=== PATIENT | female | born 1990 | race African-American/Black ===

== ENCOUNTER 2016-09-08 08:19 | Emergency (ER) | payer MEDICAID, OTHER ==
[~2016-09-08] VITALS: Ht 162.6 cm; Wt 69.6 kg
[~2016-09-08 08:19] MED LIST: IRON18TA2 PO; NAPR500T PO
[2016-09-08 08:22] VITALS: BP 108/67; PULSE 75; RESP 16; TEMP 98.4; O2SAT 100
--- NOTE | 2016-09-08 08:46 | PD ---
HPI . Vaginal discharge Chief Complaint: Hospital Coder Problem/Complaint Time Seen by Provider: 08:25 Travel History International Travel<30 days: No Contact w/Intl Traveler<30days: No Traveled to known affect area: No History of Present Illness HPI Patient presents with a 3 day history of vaginal discharge. She denies any urinary tract symptoms such as dysuria, frequency or urgency. She denies any abnormal vaginal bleeding or dyspareunia. She denies any fever. PFSH Past Medical History Diminished Hearing: No ?: Not LMP: 08/30/16 : 2 Para: 1 Miscarriage: 1 : 0 Past Surgical History Section: Yes Social History Alcohol Use: No Tobacco Use: No Substance Use: No Allergies-Medications (Allergen,Severity, Reaction): Coded Allergies: Penicillin (Verified Allergy, Severe, Itching, 09/08/16) Reported Meds & Prescriptions Reported Meds & Active Scripts Active No Active Prescriptions or Reported Medications Review of Systems Except as stated in HPI: all other systems reviewed are Neg General / Constitutional: No: Fever, Chills Gastrointestinal: No: Nausea, Vomiting, Diarrhea Genitourinary: Positive: Discharge, No: Urgency, Frequency, Dysuria, Dyspareunia, Dysmenorrhea, Metorrhagia, Vaginal Bleeding Musculoskeletal: Positive: Pain (chronic right low back pain) Physical Exam Narrative GENERAL: Healthy-appearing young woman who is in no distress. SKIN: Warm and dry. HEAD: Atraumatic. Normocephalic. EYES: Pupils equal and round. ENT: No nasal bleeding or discharge. Mucous membranes pink and moist. NECK: Trachea midline. CARDIOVASCULAR: Regular rate and rhythm. RESPIRATORY: No accessory muscle use. GASTROINTESTINAL: Abdomen soft, non-tender, nondistended. : Normal female external genitalia. White discharge in the vaginal vault. Os is closed. There is no cervical motion tenderness. There is no adnexal tenderness or mass. MUSCULOSKELETAL: No obvious deformities. No edema. NEUROLOGICAL: Awake and alert. No obvious cranial nerve deficits. Motor grossly within normal limits. Normal speech. PSYCHIATRIC: Appropriate mood and affect; insight and judgment normal. Data Data Last Documented VS Vital Signs Date Time Temp Pulse Resp B/P Pulse Ox O2 Delivery O2 Flow Rate FiO2 09/08/16 08:22 98.4 75 16 108/67 100 Orders Gc And Chlamydia Pcr (09/08/16 08:25) Wet Prep Profile (09/08/16 08:25) Urinalysis - C+S If Indicated (09/08/16 08:25) Ed Urine Pregnancytest Poc (09/08/16 08:25) Labs Laboratory Tests Test 09/08/16 08:50 Urine Collection Type CLEAN CATCH Urine Color YELLOW Urine Turbidity CLEAR Urine pH 6.5 Urine Specific [place] 1.025 Urine Protein NEG mg/dL Urine Glucose (UA) NEG mg/dL Urine Ketones NEG mg/dL Urine Occult Blood NEG Urine Nitrite NEG Urine Bilirubin NEG Urine Leukocyte Esterase SMALL Urine RBC 0-3 /hpf Urine WBC 3-5 /hpf Urine Squamous Epithelial 6-8 /hpf Cells Urine Amorphous Sediment FEW Microscopic Urinalysis Comment CULT NOT INDICATED Clue Cells (Wet Prep) PRESENT Vaginal Trichomonas (Wet Prep) NONE SEEN Vaginal Yeast (Wet Prep) NONE SEEN MDM Medical Decision Making Medical Screen Exam Complete: Yes Emergency Medical Condition: Yes Differential Diagnosis Differential diagnosis of vaginal discharge includes but is not limited to physiologic discharge, yeast infection, bacterial vaginosis, sexually transmitted disease. Narrative Course Patient presents for evaluation of vaginal discharge. She does not have any associated symptoms such as pelvic pain, dyspareunia, fever, urinary tract symptoms. Additionally, she is complaining with right low back pain. However, this is chronic. UA is negative. Wet prep is positive for clue cells. She will be treated for BV. Diagnosis Primary Impression: BV (bacterial vaginosis) Med/Other Pt SpecificInfo: Prescription(s) given Scripts Metronidazole Vaginal Gel (Metrogel Vaginal Gel)0.75 % Gel1 Appl VAGINAL HS 7 Days Ref 0 Prov:Thelma Benson MD 09/08/16 Disposition: 01 DISCHARGE HOME Condition: Stable Thelma Benson MD Sep 08, 2016 08:46
[2016-09-08 08:59] LABS: BLOOD, URINE NEG (NEG); GLUCOSE,URINE NEG (NEG); KETONE, URINE NEG (NEG); NITRITE,URINE NEG (NEG); PH, URINE 6.5 (5.0-8.5)
[2016-09-08 09:02] LABS: METHOD OF COLLECTION CLEAN CATCH; URINE COLOR YELLOW (YELLW/STRAW)
[2016-09-08 09:03] LABS: RBC, URINE 0-3 /hpf (0-3)
[2016-09-08 09:04] LABS: COMMENT (UR) CULT NOT INDICATED; CULTURE IF INDICATED CULT NOT INDICATED
[2016-09-08] MEDS ORDERED: METR0.7528 VAGINAL (09:13)
[2016-09-08 09:24] VITALS: BP 110/65
[2016-09-08 14:35] LABS: CHLAMYDIA PCR NOT DETECTED (NOT DETECT); NEISSERIA PCR NOT DETECTED (NOT DETECT)
== END 2016-09-08 09:25 | disposition home or self-care (01) ==
LOC: PHED 08:19
DX: N76.0 Acute vaginitis (principal)
CPT/HCPCS: 81001; 84703; 87210; 87491; 87591; 99283

== ENCOUNTER 2017-04-20 02:13 | Emergency (ER) | payer MEDICAID ==
[~2017-04-20] VITALS: Ht 165.1 cm; Wt 70.9 kg
[~2017-04-20 02:13] MED LIST changes: -IRON18TA2 PO; +METR0.7528 VAGINAL; -NAPR500T PO
[2017-04-20 02:18] VITALS: BP 120/64; PULSE 86; RESP 18; TEMP 98.5; O2SAT 99
[2017-04-20] MEDS ORDERED: SODIUM CHLORIDE 0.9% FLUSH 10 ML FLUSH IVF PRN (02:30)
[2017-04-20 03:00] LABS: AUTOMATED NEUTROPHIL # 3.9 TH/MM3 (1.8-7.7); BASOPHIL # 0.1 TH/MM3 (0-0.2); BASOPHIL % 1.6 % (0.0-2.0); EOSINOPHIL # 0.1 TH/MM3 (0-0.4); EOSINOPHIL % 1.2 % (0.0-4.0); HEMATOCRIT 34.8 % (35.0-46.0); HEMO FLAGS DIFF FINAL; LYMPH % 38.4 % (9.0-44.0); LYMPHOCYTE # 2.8 TH/MM3 (1.0-4.8); MEAN CELL VOLUME 76.5 FL (80.0-100.0); MEAN CORPUSCULAR HEMOGLOBIN 25.3 PG (27.0-34.0); MONO % 6.8 % (0.0-8.0); PLATELET COUNT 222 TH/MM3 (150-450); RED BLOOD COUNT 4.55 MIL/MM3 (4.00-5.30); RED CELL DISTRIBUTION WIDTH 12.2 % (11.6-17.2); WHITE BLOOD COUNT 7.4 TH/MM3 (4.0-11.0)
[2017-04-20 03:06] LABS: POTASSIUM 3.7 MEQ/L (3.5-5.1)
[2017-04-20 03:09] LABS: BICARBONATE 26.1 MEQ/L (21.0-32.0)
--- NOTE | 2017-04-20 03:42 | PD ---
HPI Chief Complaint: Related Problem Time Seen by Provider: 02:23 Travel History International Travel<30 days: No Contact w/Intl Traveler<30days: No Traveled to known affect area: No History of Present Illness HPI The patient is a 26-year-old female, G3, P1, A1 which was a spontaneous who is last menstrual period was 15 March and she found out yesterday that she was . She began bleeding vaginally tonight. She denies any syncopal or near syncopal spells. The patient has not delivered babies in this hospital system and does not know her blood type. She has minimal midline suprapubic pain. She does have a history of mild anemia in the past. [facility] Past Medical History Diminished Hearing: No Tetanus Vaccination: Unknown Influenza Vaccination: No ?: LMP: 03/11/17 : 3 Para: 1 Miscarriage: 1 : 0 Past Surgical History Section: Yes Social History Alcohol Use: Yes (SOCIALLY) Tobacco Use: No Substance Use: No Allergies-Medications (Allergen,Severity, Reaction): Coded Allergies: penicillin G (Unverified Allergy, Severe, Itching, 04/20/17) Reported Meds & Prescriptions Reported Meds & Active Scripts Active No Active Prescriptions or Reported Medications Review of Systems Except as stated in HPI: all other systems reviewed are Neg Physical Exam Narrative GENERAL: The patient is alert, oriented 3 and slight apparent distress with her midline suprapubic discomfort. Her vital signs are normal. SKIN: Focused skin assessment warm/dry. No skin rash is seen. HEAD: Atraumatic. Normocephalic. EYES: Pupils equal and round. No scleral icterus. No injection or drainage. ENT: No nasal bleeding or discharge. Mucous membranes pink and moist. NECK: Trachea midline. No JVD. CARDIOVASCULAR: Regular rate and rhythm. No murmur appreciated. RESPIRATORY: No accessory muscle use. Clear to auscultation. Breath sounds equal bilaterally. GASTROINTESTINAL: Abdomen soft, with minimal discomfort to direct palpation in the midline suprapubic area, nondistended. Hepatic and splenic margins not palpable. No guarding or rebound is present. MUSCULOSKELETAL: No obvious deformities. No clubbing. No cyanosis. No edema. NEUROLOGICAL: Awake and alert. No obvious cranial nerve deficits. Motor grossly within normal limits. Normal speech. PSYCHIATRIC: Appropriate mood and affect; insight and judgment normal. GENITOURINARY: Normal external genitalia without lesions or erythema. Vaginal vault with blood or drainage. Cervical os was closed with bloody drainage. Minimal cervical motion tenderness. Uterus minimally tender and questionably enlarged. Bilateral adnexa minimally tender without masses. Data Data Last Documented VS Vital Signs Date Time Temp Pulse Resp B/P (MAP) Pulse Ox O2 Delivery O2 Flow Rate FiO2 04/20/17 03:00 20 04/20/17 02:18 98.5 86 120/64 (82) 99 Orders Orders Beta Hcg (Quant/Titer) (04/20/17 02:24) Complete Blood Count With Diff (04/20/17 02:24) Basic Metabolic Panel (Bmp) (04/20/17 02:24) Complete Rh (04/20/17 02:24) Sodium Chloride 0.9% Flush (Ns Flush) (04/20/17 02:30) Us Pelvis (Ques Pr/Ect)W Trans (04/20/17 ) Morphine Inj (Morphine Inj) (04/20/17 04:45) Ondansetron Inj (Zofran Inj) (04/20/17 05:00) Labs Laboratory Tests Test 04/20/17 02:45 White Blood Count 7.4 TH/MM3 Red Blood Count 4.55 MIL/MM3 Hemoglobin 11.5 GM/DL Hematocrit 34.8 % Mean Corpuscular Volume 76.5 FL Mean Corpuscular Hemoglobin 25.3 PG Mean Corpuscular Hemoglobin Concent 33.0 % Red Cell Distribution Width 12.2 % Platelet Count 222 TH/MM3 Mean Platelet Volume 8.3 FL Neutrophils (%) (Auto) 52.0 % Lymphocytes (%) (Auto) 38.4 % Monocytes (%) (Auto) 6.8 % Eosinophils (%) (Auto) 1.2 % Basophils (%) (Auto) 1.6 % Neutrophils # (Auto) 3.9 TH/MM3 Lymphocytes # (Auto) 2.8 TH/MM3 Monocytes # (Auto) 0.5 TH/MM3 Eosinophils # (Auto) 0.1 TH/MM3 Basophils # (Auto) 0.1 TH/MM3 CBC Comment DIFF FINAL Differential Comment Blood Urea Nitrogen 11 MG/DL Creatinine 0.79 MG/DL Random Glucose 84 MG/DL Calcium Level 8.7 MG/DL Sodium Level 137 MEQ/L Potassium Level 3.7 MEQ/L Chloride Level 103 MEQ/L Carbon Dioxide Level 26.1 MEQ/L Anion Gap 8 MEQ/L Estimat Glomerular Filtration Rate 106 ML/MIN Human Chorionic Gonadotropin, Quant 554 MIU/ML [facility] Medical Decision Making Medical Screen Exam Complete: Yes Emergency Medical Condition: Yes Medical Record Reviewed: Yes Interpretation(s) The CBC shows a hemoglobin of 11.5 and hematocrit of 34.8 but is otherwise normal. The basic metabolic profile is normal. The beta-hCG is 554. The blood type is O+. The ultrasound shows an empty uterus with minimal retained products of conception. Differential Diagnosis Threatened AB, completed AB, ectopic , no Narrative Course The ultrasound shows that she has had a completed miscarriage. The beta hCG titer is low for the patient's dates. The beta-hCG titer is likely on its way down. She is Rh O+ and does not need RhoGAM. The patient needs to follow-up with an manager of change this week or early next week. Diagnosis Primary Impression: Inevitable complete miscarriage without complication Additional Instructions: As we discussed, it looks like you have had a completed miscarriage. Follow-up with an manager of change as soon as possible. I will write pain and nausea medicine for you. Med/Other Pt SpecificInfo: Prescription(s) given Scripts Oxycodone-Acetaminophen (Percocet) 5-325 mg Tab 1 TAB PO Q4H Y for PAIN, #15 TAB 0 Refills Prov: Delta Starr MD 04/20/17 Prochlorperazine Maleate (Prochlorperazine Maleate) 10 Mg Tab 10 MG PO Q6H Y for NAUSEA OR VOMITING, #15 TAB 0 Refills Prov: Delta Starr MD 04/20/17 Disposition: 01 DISCHARGE HOME Condition: Stable Delta Starr MD Apr 20, 2017 03:42
[2017-04-20 04:10] VITALS: BP 101/76; PULSE 84; RESP 20; O2SAT 98
[2017-04-20] MEDS ORDERED: MORPHINE SULFATE 4 MG/ML INJ IV PUSH ONE (04:45)
[2017-04-20] MEDS ORDERED: ONDANSETRON HCL 4 MG/2 ML VIAL IV ONE (05:00)
[2017-04-20] MEDS ORDERED: PERC5TAB12 PO (05:19)
[2017-04-20] MEDS ORDERED: PROC10TA PO (05:19)
--- NOTE | 2017-04-20 05:44 | RADRPT ---
EXAM DATE/TIME: 04/20/2017 04:52 [facility] COMPARISON: No previous studies available for comparison. INDICATIONS : Heavy bleeding with . LAB(S): Beta-hC MEDICAL HISTORY : . Alcohol use. SURGICAL HISTORY : section. Lower spinal surgery. ENCOUNTER: Initial ACUITY: 1 day PAIN SCORE: 7/10 LOCATION: Bilateral pelvis. MEASUREMENTS: UTERUS: 8.8 x 6.7 x 4.6 cm ENDOMETRIAL STRIPE: 9 mm RIGHT OVARY: 3.4 x 1.4 x 1.7 cm LEFT OVARY: 4.1 x 2.4 x 1.9 cm FREE FLUID: Yes FINDINGS: There is a small amount of free fluid in cul-de-sac. 1.1 centimeter cyst left ovary. Right ovary unre markable. There are 2 small tiny fluid collections in the endometrial cavity measuring 2-3 mm in diameter. Ther e is no sonographic evidence for an intrauterine . CONCLUSION: 1. Trace fluid in the endometrial cavity as above. No evidence for intrauterine . 1.1 cm lef t ovarian cyst. Trace free fluid in the pelvis. Ady King MD on April 20, 2017 at 5:39 Board Certified Radiologist. This report was verified electronically.
[2017-04-20 07:01] VITALS: BP 95/62
== END 2017-04-20 07:06 | disposition home or self-care (01) ==
LOC: PHED 02:13
DX: O03.9 Complete or unspecified spontaneous abortion without complication (principal); D64.9 Anemia, unspecified; N83.202 Unspecified ovarian cyst, left side; Z88.0 Allergy status to penicillin
CPT/HCPCS: 76700; 76817; 80048; 84702; 85025; 86901; 96374; 96375; 99285; J2270; J2405